=== PATIENT | female | born 1950 | race Caucasian/White ===

== ENCOUNTER 2017-03-24 18:52 | Observation (INO) | payer MEDICARE ==
[~2017-03-24] VITALS: Ht 165.1 cm; Wt 68.9 kg
[~2017-03-24 18:52] MED LIST: AMMONIA INHALATION 0.33 ML AMP ONE; CALC-80 PO; CARB400T PO; ETD300C PO; GBPN100C PO; GLUC1CAP37 PO; HYDR1TAB75 PO; HYDR1TAB8 OP; LAMO100T69 PO; LAMO200T14; LAMO200T14 PO; LEVE100015 PO; LORA1TAB PO; MULT-305 PO
[2017-03-24 19:18] LABS: BILIRUBIN,URINE NEGATIVE (NEGATIVE); KETONES,URINE NEGATIVE (NEGATIVE); LEUKOCYTE ESTERASE ,URINE NEGATIVE (NEGATIVE); NITRITE,URINE NEGATIVE (NEGATIVE); PH,URINE 7 (5-9); PROTEIN,URINE NEGATIVE (NEGATIVE); UROBILINOGEN,URINE NORMAL (NORMAL)
[2017-03-24 19:20] LABS: BASOPHILS # (AUTO) 0.1 10^3/uL (0.0-0.1); BASOPHILS % (AUTO) 1 % (0-10); EOSINOPHILS % (AUTO) 0 % (0-10); LYMPHOCYTES # (AUTO) 1.4 X 10^3 (1.0-4.0); LYMPHOCYTES % (AUTO) 16 % (12-44); MEAN CORPUSCULAR HEMOGLOBIN 31 PG (25-34); MEAN CORPUSCULAR HGB CONC 34 G/DL (32-36); MEAN CORPUSCULAR VOLUME 93 FL (80-99); MEAN PLATELET VOLUME 9.4 FL (7.4-10.4); MONOCYTES # (AUTO) 0.8 X 10^3 (0.0-1.0); MONOCYTES % (AUTO) 9 % (0-12); NEUTROPHILS # (AUTO) 6.4 X 10^3 (1.8-7.8); NEUTROPHILS % (AUTO) 74 % (42-75); PLATELET COUNT 343 10^3/uL (130-400); RED BLOOD COUNT 4.24 10^6/uL (4.35-5.85); RED CELL DISTRIBUTION WIDTH 12.8 % (10.0-14.5); WHITE BLOOD COUNT 8.6 10^3/uL (4.3-11.0)
[2017-03-24 19:22] LABS: PROTHROMBIN TIME PATIENT 13.5 SEC (12.2-14.7)
[2017-03-24 19:31] LABS: WBC,URINE 0-2 /HPF
[2017-03-24 19:34] LABS: ALANINE AMINOTRANSFERASE 16 U/L (0-55); ALBUMIN 4.4 GM/DL (3.2-4.5); ALCOHOL < 10 MG/DL (<10); AMYLASE 57 U/L (25-125); ANION GAP 11 MMOL/L (5-14); ASPARTATE AMINO TRANSFERASE 24 U/L (5-34); BILIRUBIN,TOTAL 0.4 MG/DL (0.1-1.0); BLOOD UREA NITROGEN 11 MG/DL (7-18); BUN/CREATININE RATIO 12; CALCIUM 9.5 MG/DL (8.5-10.1); CARBON DIOXIDE 24 MMOL/L (21-32); CHLORIDE 102 MMOL/L (98-107); CREATINE KINASE 128 U/L (29-168); CREATININE SERUM 0.89 MG/DL (0.60-1.30); GFR ESTIMATED > 60; GLUCOSE 106 MG/DL (70-105); LIPASE 15 U/L (8-78); MAGNESIUM 2.3 MG/DL (1.8-2.4); POTASSIUM 4.2 MMOL/L (3.6-5.0); SODIUM 137 MMOL/L (135-145); TOTAL PROTEIN 7.9 GM/DL (6.4-8.2)
[2017-03-24 19:35] LABS: ACETAMINOPHEN < 10 UG/ML (10-30)
--- NOTE | 2017-03-24 19:37 | Diagnostic Imaging Report ---
EXAMINATION: CT brain without contrast dated 03/24/2017. TECHNIQUE: Multiple contiguous axial images were obtained through the brain without the use of intravenous contrast. INDICATION: Acute mental status change. COMPARISON: None. FINDINGS: No hemorrhage or infarct is seen. There is no mass, mass effect, or midline shift. There is no hydrocephalus. Diffuse chronic ischemic changes seen in a periventricular distribution. There is atrophy likely age appropriate. Osseous structures are intact. Paranasal sinuses and mastoid air cells demonstrate no evidence for acute disease. IMPRESSION: 1. Chronic changes as described above with no acute process seen; however, if there is persistent concern, MRI recommended. Dictated by: Dictated on workstation # [id number]
--- NOTE | 2017-03-24 19:40 | Diagnostic Imaging Report ---
INDICATION: Acute mental status change EXAMINATION: Chest 03/24/2017 COMPARISON: None FINDINGS: The heart is normal in size. There are increased perihilar opacities bilaterally consistent with pulmonary vascular congestion. Mediastinum is slightly prominent but likely due to portable technique. Findings of edema seen throughout both lungs with no effusions or pneumothorax. No infiltrates. IMPRESSION: 1. Suspected mild pulmonary edema 2. Prominence of the mediastinum likely due to portable technique and the ectatic aorta, however, if there is focal chest pain a two-view chest in the department would be recommended. Dictated by: Dictated on workstation # [id number]
[2017-03-24 19:54] LABS: TROPONIN I < 0.30 NG/ML (<0.30)
[2017-03-24] MEDS ORDERED: 1/2 NS IV SOLUTION 1,000 ML IV ONE (20:54)
[2017-03-24] MEDS ORDERED: LORazepam INJ 2 MG/ML (ATIVAN) VIAL IV PRN (21:30)
[2017-03-24] MEDS ORDERED: 1/2 NS IV SOLUTION 1,000 ML IV SCH (21:30)
[2017-03-25] VITALS: BP 142/87
[2017-03-25 04:00] VITALS: BP 139/89
--- NOTE | 2017-03-25 04:43 | ED General ---
General Chief Complaint: Altered Mental Status Stated Complaint: ALTERED MENTAL STATUS, HX OF SEIZURES,HX OF ANXIET Nursing Triage Note: BROUGHT IN BY [facility] FOR ALTERED MENTAL STATUS Nursing Sepsis Screen: No Definite Risk Source of Information: EMS, Old Records (ALL PMH IS FROM OLD RECORDS AND ), Spouse History of Present Illness Time Seen by Provider: 18:52 Initial Comments PT ARRIVES VIA EMS FROM HOME PT WITH ALTERED MENTAL STATUS ARRIVES LATER AND STATES-- STATES SHE WAS FINE THIS AM, ATE LUNCH AROUND 1300 AND WAS FINE, SHE LAID DOWN AROUND 1400 AND LEFT TO RUN ERRANDS, HE GOT BACK AROUND 1530 AND PT WAS AWAKE AND APPEARED TO HAVE BEEN WORKING AROUND THE HOUSE WHILE HE WAS GONE--VACUUMING, CLEANING. HE STATES SHE LAID BACK DOWN AROUND 1545, AND HE ALSO LAID DOWN AND TOOK A NAP, WHEN HE WOKE UP AROUND 1800, PT WAS IN THIS CONDITION--COULDN'T GET HER TO RESPOND. PT HAS HISTORY OF SEIZURES, BUT NO WITNESSED SEIZURES TODAY. NO INCONTINENCE ALL MEDICATIONS ARE ACCOUNTED FOR AND PT HAS TAKEN HER MORNING AND NOON MEDICATIONS TODAY--HAS PRN XANAX, WHICH SHE HAS NOT TAKEN TODAY. REPORTS NO RECENT ILLNESS AND NO RECENT MEDICATION CHANGES EMS REPORTS THAT PT WILL MOVE ARM AWAY FROM FACE WHEN IT IS RAISED AND DROPPED, PT BLINKS AND SQUEEZES EYES SHUT TIGHTLY TO STERNAL RUB ACCUCHECK 112 BY EMS PCP: DR. CHAN Allergies and Home Medications Allergies Coded Allergies: pregabalin (Unverified Allergy, Intermediate, RASH, 06/12/11) Penicillins (Unverified Allergy, Mild, 09/07/09) Home Medications Calcium Carbonate/Vitamin D3 1 Each Tablet, 1 TAB PO DAILY, (Reported) Etodolac 300 Mg Cap, 300 MG PO BID, (Reported) Gabapentin 100 Mg Cap, 100 MG PO DAILY, (Reported) Glucosa Lawrence 2KCL/Chondroitin Lawrence 1 Each Capsule, 1 TAB PO BID, (Reported) Lamotrigine 200 Mg Tablet, 200 MG PO 5XD, (Reported) Lamotrigine 100 Mg Tablet, 1 EACH PO SIX TIMES A DAY, (Reported) Lorazepam 1 Mg Tab, 1 MG PO DAILY PRN, (Reported) Multivits W-Ca,Fe,Other Min 1 Each Tablet, 1 TAB PO DAILY, (Reported) Constitutional: see HPI, other (UNABLE TO OBTAIN ANY INFORMATION FROM PT) Past Edddyqn-Hocswh-Erubth Hx Patient Social History Alcohol Use: Denies Use Recreational Drug Use: No Smoking Status: Never a Smoker Recent Foreign Travel: No Contact w/Someone Who Travel: No Recent Infectious Disease Expo: No Recent Hopitalizations: No Physical Abuse Screen: No Sexual Abuse: No Immunizations Up To Date Date of Pneumonia Vaccine: May 28, 2016 Date of Influenza Vaccine: May 10, 2011 Seasonal Allergies Seasonal Allergies: No Surgeries HX Surgeries: Yes (MULTIPLE LIPOMA REMOVALS FROM BUTTOCKS; HYST/BSO 1999; RIGHT TOTAL HIP REPLACEMENT 06/2000; LEFT HIP REVISION 09/2000; VAGAL NERVE STIMULATOR 02/2003; RIGHT TOTAL HIP REPLACEMENT 02/2008; LEFT WRIST FX /ORIF 2010) Surgeries: Hysterectomy, Joint Replacement, Neurological, Oophorectomy, Orthopedic Respiratory Hx Respiratory Disorders: No Cardiovascular Hx Cardiac Disorders: No Neurological Hx Neurological Disorders: Yes (TBI/CONCUSSION AGE 7) Neurological Disorders: Concussion, Seizure Disorder, Traumatic Brain Injury Reproductive System : No Hx Reproductive Disorders: No Sexually Transmitted Disease: No 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 Genitourinary Hx Genitourinary Disorders: No Gastrointestinal Hx Gastrointestinal Disorders: No Musculoskeletal Hx Musculoskeletal Disorders: Yes (SEVERE ARTHRITIS) Musculoskeletal Disorders: Arthritis, Fractures Endocrine Hx Endocrine Disorders: No HEENT HX ENT Disorders: No Cancer Hx Cancer: No Psychosocial Hx Psychiatric Problems: Yes Behavioral Health Disorders: Anxiety, Depression Integumentary HX Skin/Integumentary Disorder: No Blood Transfusions Hx Blood Disorders: No Family Medical History Family Medial History: Not obtainable due to adoption Physical Exam Vital Signs Vital Sign - Last 12Hours 03/24/17 18:58 Temp 98.6 Pulse 74 Resp 16 B/P (MAP) 162/98 Pulse Ox 98 O2 Delivery Room Air Capillary Refill : Less Than 3 Seconds General Appearance: No Apparent Distress, WD/WN, Other (PT KEEPS EYES CLOSED AT ALL TIMES, BUT SQUEEZES THEM SHUT VERY TIGHTLY ON ATTEMPTS TO EXAMINE/ FORCIBLY OPEN EYES. AMMONIA AMPULE PLACED UNDER NOSE --PT MAKING FACES, SQUEEZING EYES VERY TIGHTLY SHUT, HOLDING HER BREATH, SWALLOWING REPEATEDLY. ) HEENT: PERRL/EOMI (BUT LIMITED EXAM DUE TO PT FORCIBLY SQUEEZING HER EYES TIGHTLY SHUT -- NO GROSS ABNORMALITY. ), TMs Normal, Normal ENT Inspection, Pharynx Normal Neck: Full Range of Motion, Normal Inspection, Non Tender, Supple, Other (PT VOLUNTARILY ASSISTS WITH HEAD MOVEMENTS ON EXAMINING HEAD/EENT/NECK) Respiratory: Chest Non Tender, Normal Breath Sounds, No Accessory Muscle Use, No Respiratory Distress Cardiovascular: Regular Rate, Rhythm, No Edema, No JVD, No Murmur, Normal Peripheral Pulses Gastrointestinal: Normal Bowel Sounds, No Organomegaly, No Pulsatile Mass, Non Tender, Soft Back: Normal Inspection, No CVA Tenderness, No Vertebral Tenderness Extremity: Normal Capillary Refill, Normal Inspection, Normal Range of Motion, Non Tender, No Calf Tenderness, No Pedal Edema Neurologic/Psychiatric: Other (KEEPS EYES SHUT AT ALL TIMES, DOES NOT FOLLOW COMMANDS; ON RAISING PT'S ARMS, SHE ACTIVELY HOLDS EACH ONE IN THE AIR FOR LONG PERIOD OF TIME, THEN WHEN HER ARM IS RAISED BY STAFF AND DROPPED NEAR HER FACE, PT WILL MOVE ARM AWAY FROM FACE. ON RAISING LEGS, THE SAME OCCURS--WHEN LEG IS RAISED SHE HOLDS EACH ONE VERY STIFFLY IN THE AIR FOR LONG PERIODS OF TIME, BUT WHEN RAISED AND DROPPED NEAR THE OTHER LEG, SHE WILL MOVE LEG TO AVOID DROPPING IT ON OTHER LEG. DTR'S INTACT AND +2/4 IN ALL EXTREMITIES. PT ALSO ASSISTS WITH ALL ARM AND LEG MOVEMENTS ) Skin: Normal Color, Warm/Dry, No Rash Progress/Results/Core Measures Results/Orders Lab Results Laboratory Tests Test 03/24/17 18:57 03/24/17 19:03 03/24/17 19:10 03/24/17 19:14 Range/Units White Blood Count 8.6 4.3-11.0 10^3/uL Red Blood Count 4.24 L 4.35-5.85 10^6/uL Hemoglobin 13.2 11.5-16.0 G/DL Hematocrit 39 35-52 % Mean Corpuscular Volume 93 80-99 FL Mean Corpuscular Hemoglobin 31 25-34 PG Mean Corpuscular Hemoglobin Concent 34 32-36 G/DL Red Cell Distribution Width 12.8 10.0-14.5 % Platelet Count 343 130-400 10^3/uL Mean Platelet Volume 9.4 7.4-10.4 FL Neutrophils (%) (Auto) 74 42-75 % Lymphocytes (%) (Auto) 16 12-44 % Monocytes (%) (Auto) 9 0-12 % Eosinophils (%) (Auto) 0 0-10 % Basophils (%) (Auto) 1 0-10 % Neutrophils # (Auto) 6.4 1.8-7.8 X 10^3 Lymphocytes # (Auto) 1.4 1.0-4.0 X 10^3 Monocytes # (Auto) 0.8 0.0-1.0 X 10^3 Eosinophils # (Auto) 0.0 0.0-0.3 10^3/uL Basophils # (Auto) 0.1 0.0-0.1 10^3/uL Prothrombin Time 13.5 12.2-14.7 SEC INR Comment 1.0 0.8-1.4 Activated Partial Thromboplast Time 28 24-35 SEC Sodium Level 137 135-145 MMOL/L Potassium Level 4.2 3.6-5.0 MMOL/L Chloride Level 102 98-107 MMOL/L Carbon Dioxide Level 24 21-32 MMOL/L Anion Gap 11 5-14 MMOL/L Blood Urea Nitrogen 11 7-18 MG/DL Creatinine 0.89 0.60-1.30 MG/DL Estimat Glomerular Filtration Rate > 60 BUN/Creatinine Ratio 12 Glucose Level 106 H 70-105 MG/DL Calcium Level 9.5 8.5-10.1 MG/DL Magnesium Level 2.3 1.8-2.4 MG/DL Total Bilirubin 0.4 0.1-1.0 MG/DL Aspartate Amino Transf (AST/SGOT) 24 5-34 U/L Alanine Aminotransferase (ALT/SGPT) 16 0-55 U/L Alkaline Phosphatase 122 40-136 U/L Total Creatine Kinase 128 29-168 U/L Creatine Kinase MB 1.3 <6.6 NG/ML Troponin I < 0.30 <0.30 NG/ML Total Protein 7.9 6.4-8.2 GM/DL Albumin 4.4 3.2-4.5 GM/DL Amylase Level 57 25-125 U/L Lipase 15 8-78 U/L TSH [place] Testing 1.37 0.35-4.94 UIU/ML Acetaminophen Level < 10 L 10-30 UG/ML Serum Alcohol < 10 <10 MG/DL Urine Color YELLOW Urine Clarity CLEAR Urine pH 7 5-9 Urine Specific [place] 1.005 L 1.016-1.022 Urine Protein NEGATIVE NEGATIVE Urine Glucose (UA) NEGATIVE NEGATIVE Urine Ketones NEGATIVE NEGATIVE Urine Nitrite NEGATIVE NEGATIVE Urine Bilirubin NEGATIVE NEGATIVE Urine Urobilinogen NORMAL NORMAL MG/DL Urine Leukocyte Esterase NEGATIVE NEGATIVE Urine RBC (Auto) 1+ H NEGATIVE Urine RBC RARE /HPF Urine WBC 0-2 /HPF Urine Crystals NONE /LPF Urine Bacteria NEGATIVE /HPF Urine Casts NONE /LPF Urine Mucus NEGATIVE /LPF Urine Culture Indicated NO Urine Opiates Screen NEGATIVE NEGATIVE Urine Oxycodone Screen NEGATIVE NEGATIVE Urine Methadone Screen NEGATIVE NEGATIVE Urine Propoxyphene Screen NEGATIVE NEGATIVE Urine Barbiturates Screen NEGATIVE NEGATIVE Ur Tricyclic Antidepressants Screen NEGATIVE NEGATIVE Urine Phencyclidine Screen NEGATIVE NEGATIVE Urine Amphetamines Screen NEGATIVE NEGATIVE Urine Methamphetamines Screen NEGATIVE NEGATIVE Urine Benzodiazepines Screen NEGATIVE NEGATIVE Urine Cocaine Screen NEGATIVE NEGATIVE Urine Cannabinoids Screen NEGATIVE NEGATIVE Glucometer 83 70-110 MG/DL Test 03/24/17 19:20 Range/Units Lactic Acid Level 0.93 0.50-2.00 MMOL/L Ammonia 25 11-32 UMOL/L My Orders Orders - ROSAURA GARCIA DO Accucheck Stat ONCE (03/24/17 19:03) Saline Lock/Iv-Start (03/24/17 19:03) Ekg Tracing (03/24/17:03) Catheter(Urinary) Insert & Ass ,15 (03/24/17 19:03) Monitor-Rhythm Ecg Trace Only (03/24/17:03) Ct Head Wo (03/24/17:) Acetaminophen (03/24/17:) Alcohol (03/24/17:03) Amylase (03/24/17:03) Cbc With Automated Diff (03/24/17:03) Comprehensive Metabolic Panel (03/24/17:) Creatine Kinase (03/24/17:) Creatine Kinase Mb (03/24/17:03) Drug Screen Stat (Urine) (03/24/17:03) Lactic Acid Analyzer (03/24/17:03) Lipase (03/24/17:03) Magnesium (03/24/17:) Protime With Inr (03/24/17:) Partial Thromboplastin Time (03/24/17:03) Thyroid Analyzer (03/24/17 19:03) Troponin I (03/24/17 19:03) Ua Culture If Indicated (03/24/17 19:03) Chest 1 View, Ap/Pa Only (03/24/17 19:03) Ammonia (03/24/17 19:15) Vital Signs/I&O Vital Sign - Last 12Hours 03/24/17 03/24/17 03/24/17 03/24/17 18:58 20:41 20:55 21:00 Temp 98.6 98.6 Pulse 74 75 76 Resp 16 11 B/P (MAP) 162/98 Pulse Ox 98 97 96 O2 Delivery Room Air Room Air Room Air 03/25/17 03/25/17 03/25/17 03/25/17 00:00 00:00 01:00 04:00 Temp 100.2 Pulse 81 73 B/P (MAP) 142/87 Pulse Ox 96 94 96 O2 Delivery Room Air Room Air Room Air Blood Pressure Mean: 105 Point of Care Testing Finger Stick Blood Glucose: 83 Blood Glucose Action Taken: ERP NOTIFIED Progress Note : Progress Note NO DETERIORATION IN PT'S CONDITION DURING ER STAY ECG Initial ECG Impression Time: 18:57 Initial ECG Rate: 77 Initial ECG Rhythm: Normal Sinus Initial ECG Impression: Normal Initial ECG Comparisson: No Previous ECG Available Diagnostic Imaging Comments CT HEAD--NO ACUTE PROCESS, CHRONIC CHANGES CXR--NO ACUTE PROCESS PER RADIOLOGIST REPORTS @ 1952 Reviewed: Reviewed by Me Departure Communication Progress Notes 2004--SPOKE WITH DR. MOODY, ACCEPTS PT FOR ADMIT. Impression Impression: Primary Impression: Altered mental status Additional Impressions: Catatonia Hx of seizure disorder Hx of anxiety disorder Disposition: ADMITTED INPATIENT Condition: Improved Admissions Decision to Admit Reason: Admit from ER (General) Decision to Admit/Date: Mar 24, 2017 Time/Decision to Admit Time: 20:05 Departure-Patient Inst. Referrals: JUAN MANUEL ROUSE DO (PCP) Primary Care Physician ROSAURA GARCIA DO Mar 25, 2017 04:43
[2017-03-25 04:47] LABS: BASOPHILS # (AUTO) 0.1 10^3/uL (0.0-0.1); BASOPHILS % (AUTO) 1 % (0-10); EOSINOPHILS % (AUTO) 0 % (0-10); LYMPHOCYTES % (AUTO) 23 % (12-44); MEAN CORPUSCULAR HEMOGLOBIN 31 PG (25-34); MEAN CORPUSCULAR HGB CONC 34 G/DL (32-36); MEAN CORPUSCULAR VOLUME 93 FL (80-99); MEAN PLATELET VOLUME 9.2 FL (7.4-10.4); MONOCYTES # (AUTO) 1.1 X 10^3 (0.0-1.0); MONOCYTES % (AUTO) 12 % (0-12); NEUTROPHILS # (AUTO) 5.4 X 10^3 (1.8-7.8); NEUTROPHILS % (AUTO) 63 % (42-75); PLATELET COUNT 323 10^3/uL (130-400); RED BLOOD COUNT 4.23 10^6/uL (4.35-5.85); RED CELL DISTRIBUTION WIDTH 12.9 % (10.0-14.5); WHITE BLOOD COUNT 8.5 10^3/uL (4.3-11.0)
[2017-03-25 05:11] LABS: ALANINE AMINOTRANSFERASE 15 U/L (0-55); ALBUMIN 4.3 GM/DL (3.2-4.5); ANION GAP 12 MMOL/L (5-14); ASPARTATE AMINO TRANSFERASE 20 U/L (5-34); BILIRUBIN,TOTAL 0.4 MG/DL (0.1-1.0); BLOOD UREA NITROGEN 11 MG/DL (7-18); BUN/CREATININE RATIO 14; CALCIUM 9.6 MG/DL (8.5-10.1); CARBON DIOXIDE 23 MMOL/L (21-32); CHLORIDE 102 MMOL/L (98-107); CREATININE SERUM 0.81 MG/DL (0.60-1.30); GFR ESTIMATED > 60; GLUCOSE 105 MG/DL (70-105); POTASSIUM 3.8 MMOL/L (3.6-5.0); SODIUM 137 MMOL/L (135-145); TOTAL PROTEIN 7.4 GM/DL (6.4-8.2)
[2017-03-25 08:05] VITALS: BP 142/88
[2017-03-25] MEDS ORDERED: OMEP20CA12 PO (09:32)
[2017-03-25] MEDS ORDERED: LAMO100T PO (09:32)
[2017-03-25] MEDS ORDERED: LORA1TAB PO (09:32)
[2017-03-25] MEDS ORDERED: LORazepam 1 MG (ATIVAN) TAB PO PRN (11:30)
[2017-03-25 12:05] VITALS: BP 119/77
--- NOTE | 2017-03-25 12:33 | Short Stay Summary-Hospitalist ---
HPI History of Present Illness: HPI/Chief Complaint CC: Unresponsive HPI: This is a 67 [address] Tucker with a hx of seizure disorder that presented as unresponsive after no change in status yesterday. Labs imaging are normal and the pt's family feels like this is a psych episode. 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 Pt will not squeeze RNs hand, but can move her blankets herself. Pt knows the month, year, her name, etc but states she is here to go to sleep. Pt requested that the RN tell her family 'hi' last night. Pt is on Lamictal 6 times daily Pt labs are okay SW Review: Pt has [employer] so she cannot have a psych eval with Sameer Enciso, will refer to outpt at PCP discretion Patient Interview: The following interview was done with pt's : Labs and tests discussed and were normal Pt will most likely not need to stay It is possible that her medication and seizure disorder is a factor. Pt's agrees and states that she has had seizure disorder for over 40 years. It first started when pt fell as a [age] year old. Pt's seems like he's got all the explanations. Neurologist was confirmed as Dr. Winkler in [place], but now they just see Dr. Tucker as PCP. Pt's son is a psychologist and it is possible that pt may have depression Family was wondering if pt needs a sleep study. Dr. Tucker will see note and hopefully order sleep study Pt needs to eat breakfast Pt's daughter states that she would like her mother to have a psych eval because she seems to be making plans to 'check out'. Pt had seizure after interview but she has one a week Scribed by Christa Christine under the direct supervision of Dr. Knapp. Source: family, RN/MD Exam Limitations: clinical condition (pt refuses to open her eyes and converse) Date Seen 03/25/17 Time Seen by Provider: 09:30 (09:30) Attending Physician Danny No MD PCP Thad Tucker DO Referring Physician Date of Admission Mar 24, 2017 at 20:05 Home Medications & Allergies Home Medications Reviewed patient Home Medication Reconciliation Form Allergies Allergies Coded Allergies gabapentin (Verified Allergy, Intermediate, RASH, 03/25/17) pregabalin (Unverified Allergy, Intermediate, RASH, 06/12/11) Penicillins (Unverified Allergy, Mild, 09/07/09) valproic acid (Verified Adverse Reaction, Intermediate, NAUSEA, 03/25/17) Past Zzbtrhu-Pfltcv-Fikwhm Hx Patient Social History Marrital Status: Employed/Student: unemployed Alcohol Use: Denies Use Recreational Drug Use: No Smoking Status: Never a Smoker Physical Abuse Screen: No Sexual Abuse: No Recent Foreign Travel: No Contact w/other who traveled: No Recent Hopitalizations: No Recent Infectious Disease Expo: No Immunizations Up To Date Date of Pneumonia Vaccine: May 28, 2016 Date of Influenza Vaccine: May 10, 2011 Seasonal Allergies Seasonal Allergies: No Surgeries HX Surgeries: Yes (MULTIPLE LIPOMA REMOVALS FROM BUTTOCKS; HYST/BSO 1999; RIGHT TOTAL HIP REPLACEMENT 06/2000; LEFT HIP REVISION 09/2000; VAGAL NERVE STIMULATOR 02/2003; RIGHT TOTAL HIP REPLACEMENT 02/2008; LEFT WRIST FX /ORIF 2010) Surgeries: Hysterectomy, Joint Replacement, Neurological, Oophorectomy, Orthopedic Respiratory Hx Respiratory Disorders: No Cardiovascular Hx Cardiovascular Disorders: No Neurological Hx Neurological Disorders: Yes (TBI/CONCUSSION AGE 7) Neurological Disorders: Concussion, Seizure Disorder, Traumatic Brain Injury ( 7yo fell and hit head on concrete) Reproductive System : No Hx Reproductive Disorders: No Sexually Transmitted Disease: No Genitourinary Hx Genitourinary Disorders: No Gastrointestinal Hx Gastrointestinal Disorders: No Musculoskeletal Hx Musculoskeletal Disorders: Yes (SEVERE ARTHRITIS) Musculoskeletal Disorders: Arthritis, Fractures Endocrine Hx Endocrine Disorders: No HEENT HX ENT Disorders: No Cancer Hx Cancer: No Psychosocial Hx Psychiatric Problems: Yes Behavioral Health Disorders: Anxiety, Depression Integumentary HX Skin/Integumentary Disorder: No Blood Transfusions Hx Blood Disorders: No Family Medical History Family Hx: Not obtainable due to adoption Review of Systems ROS-Unable to Obtain: unable to ascertain due to refusal to open her eyes but follows commands Constitutional: see HPI Physical Exam Physical Exam Vital Signs Vital Sign - Last 12Hours 03/24/17 18:58 Temp 98.6 Pulse 74 Resp 16 B/P (MAP) 162/98 Pulse Ox 98 O2 Delivery Room Air Capillary Refill : Less Than 3 Seconds General Appearance: No Apparent Distress, WD/WN, Chronically ill Eyes: Bilateral Eye Normal Inspection, Bilateral Eye PERRL HEENT: Normal ENT Inspection, Pharynx Normal, Other (refuses to open eyes willingly) Neck: Full Range of Motion, Normal Inspection, Non Tender, Supple, Carotid Bruit Respiratory: Chest Non Tender, Lungs Clear, Normal Breath Sounds, No Accessory Muscle Use, No Respiratory Distress Cardiovascular: Regular Rate, Rhythm, No Edema, No Gallop, No JVD, No Murmur, Normal Peripheral Pulses Gastrointestinal: Normal Bowel Sounds, No Organomegaly, No Pulsatile Mass, Non Tender, Soft Back: Normal Inspection, No CVA Tenderness, No Vertebral Tenderness Extremity: Normal Capillary Refill, Normal Inspection, Normal Range of Motion, Non Tender, No Calf Tenderness, No Pedal Edema Neurologic/Psychiatric: Alert, Depressed Affect Skin: Normal Color, Warm/Dry Lymphatic: No Adenopathy Results Results/Procedures Lab Laboratory Tests 03/24/17 18:57 03/24/17 19:03 03/25/17 04:20 Short Stay Diagnosis Discharge Diagnosis-Short Stay Admission Diagnosis Assessment: Unresponsive episode likely post-ictal state Chronic seizure d/o previously saw Dr Vargas Neurologist but Dr Tucker manages seizures now Possible depression, thinks that is a component and daughter told me outside room that it definitely is a psych issue that caused this acute issue Final Discharge Diagnosis Assessment: Unresponsive episode likely post-ictal state Chronic seizure d/o previously saw Dr Vargas Neurologist but Dr Tucker manages seizures now Possible depression, thinks that is a component and daughter told me outside room that it definitely is a psych issue that caused this acute issue Conclusion Plan Plan: DC catheter Ambulate Reconcile home meds PT - Allyssa to encourage ambulation Needs sleep study as outpt and to evaluate seizure meds since it appears this is related to seizures and likely depression but will allow PCP to manage this Clinical Quality Measures DVT/VTE Risk/Contraindication: Risk Factor Score Per Nursin RFS Level Per Nursing on Admit: 2=Moderate LUCIO KNAPP DO Mar 25, 2017 12:33
--- NOTE | 2017-03-25 13:51 | Physical Therapy Evaluation ---
PT Evaluation-General Medical Diagnosis Admission Date Mar 24, 2017 at 20:05 Medical Diagnosis: weakness Onset Date: Mar 24, 2017 Therapy Diagnosis Therapy Diagnosis: impaired mobility Height/Weight Height (Feet): 5 Height (Inches): 5.00 Weight (Pounds): 151 Weight (Ounces): 12.8 Precautions Precautions/Isolations: Seizure, Fall Prevention, Standard Precautions Referral Physician: Jaycee West DO Reason for Referral: Evaluation/Treatment Medical History Pertinent Medical History: Arthritis Additional Medical History TBI/concussion as a child, hx seizure disorder, anxiety, depression, surg ( lipoma removals from buttocks, hysterectomy, right ZOYA 1999, vagal nerve stimulator, right ZOYA 2007, left wrist ORIF 2010) Social History Patient will not communicate, patient history or home situation not obtainable Prior/Core FIM Prior Level of Function Functional Gila Measure 0=Not Assessed/NA 4=Minimal Assistance 1=Total Assistance 5=Supervision or Setup 2=Maximal Assistance 6=Modified Gila 3=Moderate Assistance 7=Complete Gila unknown PT Evaluation-Current Subjective Patient in bed pre tx, she appears to be sleeping but nursing states she keeps her eyes closed and will not talk to staff. Upon introduction, patient is non- responsive. She does not seem to be in any pain. A mild sternal rub does not rouse the patient. Objective Patient Orientation: Unable to Assess ROM/Strength ROM Lower Extremities WNL, patient resists PROM, but it appears to be normal Strenght Lower Extremities NT patient will not follow commands Transfers Functional Gila Measure 0=Not Assessed/NA 4=Minimal Assistance 1=Total Assistance 5=Supervision or Setup 2=Maximal Assistance 6=Modified Gila 3=Moderate Assistance 7=Complete Gila Transfers (B, C, W/C) (FIM): 1 Scootin Rollin Supine to/from Sit: 1 Patient was sat at the edge of the bed with dependence of 2 people, in the process of sitting patient stated that we did not need to do that, but she still would not open her eyes. After sitting for a couple of minutes as asking her questions about pain and how she was getting around before coming to the hospital, patient suddenly goes limp. Still will not talk or open eyes. She was layed back down. When asked to cross her arms across her chest so we could scoot her up on bed, she complies perfectly and she was scooted up in bed. Bed alarm on post tx, she has nurse call, phone, tray, family in room. Assessment/Needs Patient refuses to participate. She is discharging from this facility today. Rehab Potential: Poor PT Plan Treatment/Plan Treatment Plan: Discontinue PT Treatment Plan: Other Treatment Duration: Mar 25, 2017 Frequency: Estimated Hrs Per Day: .25 hour per day (none) Patient and/or Family Agrees t: Yes Discharge Recommendations Therapy D/C Recommendations: Home w/ Family Support Time/GCodes Time In: 1330 Time Out: 1345 Total Billed Treatment Time: 15 Total Billed Treatment 1 visit EVL 15' G Codes Necessary: Yes PT/OT Therapy GCodes Therapy Functional Limitation: Physical Therapy Test(s)/Tool used to determine: Level of Assistance Scale Functional Limitation-Current Charge Code: MOBCUR Modifier: CM Functional Limitation-Goal Charge Code: MOBGOAL Modifier: CM Functional Limitation-D/C Charge Codes: MOBDC Modifier: CM GWENDOLYN POLO PT Mar 25, 2017 13:51
[2017-03-25] MEDS ORDERED: CALCIUM CARB + VIT D 600 MG (CALCARB + D) TAB PO SCH (15:00)
[2017-03-25 16:00] VITALS: BP 124/76
[2017-03-25] MEDS ORDERED: [UNRECOGNIZED DRUG - OTHER] PO SCH (19:00)
[2017-03-25] MEDS ORDERED: MULTIVIT W/MINERALS TAB (THERAGRAN M) PO SCH (21:00)
[2017-03-25] MEDS ORDERED: PANTOPRAZOLE 20 MG TABLET (PROTONIX) PO SCH (21:00)
== END 2017-03-25 18:00 | disposition home or self-care (01) ==
LOC: EDUNIT# 18:52 → ER 18:52 → ICU 20:05 → UNDOADMOB 20:05 → ICU 20:47
PROVIDERS: ADMIT Internal Medicine; ATTEND Internal Medicine
DX: R41.82 Altered mental status, unspecified (principal); G40.909 Epilepsy, unspecified, not intractable, without status epilepticus; F41.9 Anxiety disorder, unspecified; Z79.899 Other long term (current) drug therapy; Z96.641 Presence of right artificial hip joint
CPT/HCPCS: 36415; 70450; 71010; 80053; 80306; 80320; 80329; 81000; 82140; 82150; 82550; 82553; 82962; 83605; 83690; 83735; 84443; 84484; 85025; 85610; 85730; 93041

== ENCOUNTER → 2017-05-14 | Outpatient (CLI) | payer MEDICARE ==
[~2017-05-14] MED LIST changes: -AMMONIA INHALATION 0.33 ML AMP ONE; +LAMO100T PO; +OMEP20CA12 PO
--- NOTE | 2017-05-14 13:59 | Diagnostic Imaging Report ---
Three views of the left ankle and three views of the right ankle are obtained. INDICATION: Trauma. Fall. FINDINGS: The left ankle demonstrate no fracture, dislocation or radiopaque from body. Ankle mortise is normal in configuration. The right ankle demonstrate no fracture, dislocation or radiopaque foreign body. IMPRESSION: Unremarkable exam. Dictated by: Dictated on workstation # [id number]
== END ==
LOC: RAD 12:51
PROVIDERS: ATTEND Internal Medicine
DX: S99.911A Unspecified injury of right ankle, initial encounter (principal); S99.912A Unspecified injury of left ankle, initial encounter; W19.XXXA Unspecified fall, initial encounter; Y99.8 Other external cause status

== ENCOUNTER → 2017-07-06 | Outpatient (CLI) | payer MEDICARE ==
--- NOTE | 2017-07-06 21:46 | Diagnostic Imaging Report ---
INDICATION: Left buttock pain AP view of the pelvis was obtained and compared with the prior exam dated 05/29/2015. There are postop changes from bilateral hip arthroplasties. There is no evidence of loosening. There is no fracture or dislocation. IMPRESSION: Postop changes in both hips. No acute abnormality seen. No interval change since 05/29/2015. Dictated by: Dictated on workstation # [id number]
== END ==
LOC: RAD 14:55
PROVIDERS: ATTEND Nurse Practitioner Family
DX: M79.1 Myalgia (principal); Z98.890 Other specified postprocedural states
CPT/HCPCS: 72170

== ENCOUNTER 2017-08-04 14:05 | Emergency (ER) | payer MEDICARE ==
[~2017-08-04] VITALS: Ht 165.1 cm; Wt 63.5 kg
--- NOTE | 2017-08-04 14:42 | ED Back Pain ---
General Chief Complaint: Back Problems Stated Complaint: FALL,HAS EPILEPSY Nursing Triage Note: PT PRESENTS TO ER WITH COMPLAINT OF BACK AND NECK PAIN. STATES THAT SHE HAS EPILEPSY AND HAD A SEIZURE TWO DAYS AGO THAT CAUSED HER TO FALL. Nursing Sepsis Screen: No Definite Risk Source of Information: Patient Exam Limitations: No Limitations History of Present Illness Time Seen by Provider: 14:42 Allergies and Home Medications Allergies Coded Allergies: gabapentin (Verified Allergy, Intermediate, RASH, 03/25/17) pregabalin (Unverified Allergy, Intermediate, RASH, 06/12/11) Penicillins (Unverified Allergy, Mild, 09/07/09) valproic acid (Verified Adverse Reaction, Intermediate, NAUSEA, 03/25/17) Home Medications Calcium Carbonate/Vitamin D3 1 Each Tablet, 1 TAB PO 1500, (Reported) Glucosa Lawrence 2KCL/Chondroitin Lawrence 1 Each Capsule, 1 TAB PO 1900, (Reported) Lamotrigine 100 Mg Tablet, 100 MG PO UD, (Reported) TAKES @ 0400, 0800, 1100, 1500, 1900, & 2300 Lorazepam 1 Mg Tablet, 1 MG PO TID PRN for ANXIETY, (Reported) Multivits W-Ca,Fe,Other Min 1 Each Tablet, 1 TAB PO HS, (Reported) Omeprazole 20 Mg Capsule.dr, 20 MG PO HS, (Reported) Past Izhxcnx-Hczlag-Mmdchg Hx Patient Social History Alcohol Use: Denies Use Recreational Drug Use: No Smoking Status: Never a Smoker Recent Foreign Travel: No Contact w/Someone Who Travel: No Recent Infectious Disease Expo: No Recent Hopitalizations: No Physical Abuse: No Sexual Abuse: No Immunizations Up To Date Date of Pneumonia Vaccine: May 28, 2016 Date of Influenza Vaccine: May 10, 2011 Seasonal Allergies Seasonal Allergies: No Surgeries History of Surgeries: Yes Surgeries: Hysterectomy, Joint Replacement, Neurological, Oophorectomy, Orthopedic Respiratory History of Respiratory Disorde: No Cardiovascular History of Cardiac Disorders: No Neurological History of Neurological Disord: Yes (TBI/CONCUSSION AGE 7) Neurological Disorders: Concussion, Seizure Disorder, Traumatic Brain Injury Reproductive System Hx Reproductive Disorders: No Sexually Transmitted Disease: No CLINICAL SUPPORT TECH History: Hysterectomy, Menopausal Genitourinary History of Genitourinary Disor: No Gastrointestinal History of Gastrointestinal Di: No Musculoskeletal History of Musculoskeletal Dis: Yes (SEVERE ARTHRITIS) Musculoskeletal Disorders: Arthritis, Fractures Endocrine History of Endocrine Disorders: No HEENT History of HEENT Disorders: No Cancer History of Cancer: No Psychosocial History of Psychiatric Problem: Yes Behavioral Health Disorders: Anxiety, Depression Suicide Risk Score: 0 Integumentary History of Skin or Integumenta: No Blood Transfusions History of Blood Disorders: No Family Medical History Family Medial History: Not obtainable due to adoption Physical Exam Vital Signs Vital Sign - Last 12Hours 08/04/17 14:25 Temp 98.3 Pulse 83 Resp 20 B/P (MAP) 152/88 (109) Pulse Ox 98 O2 Delivery Room Air Capillary Refill : Less Than 3 Seconds Progress/Results/Core Measures Results/Orders My Orders Orders - JORGE A RODRIGUEZ Ct Head/Cervical Spine Wo (08/04/17 14:57) Ct Thoracic/Lumbar Spine Wo (08/04/17 14:57) Vital Signs/I&O Vital Sign - Last 12Hours 08/04/17 14:25 Temp 98.3 Pulse 83 Resp 20 B/P (MAP) 152/88 (109) Pulse Ox 98 O2 Delivery Room Air Blood Pressure Mean: 109 Departure Impression Impression: Primary Impression: Minor head injury Additional Impressions: Neck muscle strain Back strain History of epilepsy Disposition: 01 HOME, SELF-CARE Condition: Improved Departure-Patient Inst. Decision time for Depature: 16:09 Referrals: JUAN MANUEL ROUSE DO (PCP/Family) Primary Care Physician Patient Instructions: Cervical Muscle Strain (DC), Minor Head Injury (DC), Muscle Strain (DC) Add. Discharge Instructions: All discharge instructions reviewed with patient and/or family. Voiced understanding. Medications as instructed. Tylenol extra strength [id number]-[id number]-[id number] as directed for pain. Heating pads or packs as needed for pain. No strenuous activity or activities that may result and head injury for 7 days after headache resolves. Follow-up with your family practitioner for recheck as an outpatient. Return to the emergency department for worsened symptoms or any other concerns. Scripts Hydrocodone/Acetaminophen (Hydrocodon -Acetaminophen 5-325) 1 Each Tablet 1 EACH PO Q6H Y for PAIN, #10 TAB 0 Refills Prov: JORGE A RODRIGUEZ 08/04/17 Prednisone (Prednisone) 20 Mg Tab 20 MG PO BID, #8 TAB 0 Refills Prov: JORGE A RODRIGUEZ 08/04/17 JORGE A RODRIGUEZ Aug 04, 2017 14:42
--- NOTE | 2017-08-04 15:44 | Diagnostic Imaging Report ---
PROCEDURE: CT head and CT cervical spine without contrast. TECHNIQUE: Multiple contiguous axial images were obtained through the brain and cervical spine without the use of intravenous contrast. Sagittal and coronal reformations through the cervical spine were then performed. INDICATION: Fall. FINDINGS: CT head: There is no intracranial hemorrhage, edema, or mass effect. The brain parenchyma and shin-white matter differentiation is preserved. There is no hydrocephalus. No extra-axial fluid collection is seen. The calvarium, the paranasal sinuses, and orbits visualized portions appear grossly unremarkable. CT cervical spine: There is reversal of the lordotic curvature. The vertebral body heights are preserved. There is significant disc height loss at the C4-C5, C5-C6, and C6-C7 levels. There is minimal anterior translation of C2 over C3 and C3 over C4. The alignment at the facet joints is satisfactory. There is fusion of the C2-C3 facet joint on the left side. There are posterior osteophytes seen at the C4-C5, C5-C6 and C6-C7 levels and prominent uncovertebral arthropathy and osteophyte formation also at these three levels. Vlbpcomc-by-sdqdqe foraminal stenosis bilaterally at these levels is seen. The coronal images demonstrate satisfactory alignment of the lateral masses of C1 and C2 and atlanto-occipital joints. There is no widening of the predental space. No fracture seen. IMPRESSION: CT head: No intracranial hemorrhage. CT cervical spine: Advanced degenerative changes. Alignment abnormalities at C2-C3 and C3-C4 are probably also degenerative in etiology. No fracture seen. Dictated by: Dictated on workstation # [id number]
--- NOTE | 2017-08-04 15:57 | Diagnostic Imaging Report ---
TECHNIQUE: CT scan of the thoracic and lumbar spine performed without intravenous contrast with coronal, sagittal, and axial reconstructions performed. INDICATION: Fall. FINDINGS: CT THORACIC SPINE: There is straightening of the curvature of the thoracic spine particularly along the lower aspect. There is an old compression fracture of T12 vertebral body with no significant retropulsion. The alignment of the posterior spinal line is satisfactory. Alignment at the facet joints is satisfactory. There is moderate foraminal narrowing on the right side at T2/3 and T3/4 levels. The other foramina bilaterally are patent. No acute fracture is seen. CT LUMBAR SPINE: There is grade I retrolisthesis of L1 over L2 and L2 over L3 and of L3 over L4 levels. There is scoliosis convex to the left side with center of the convexity at L3 level. There are advanced disc degenerative changes in the lumbar spine levels with significant endplate erosions and cyst formation in the subchondral bone with vacuum phenomenon seen along these discs. There is no pars defect or fracture seen. The vertebral body heights are preserved. There is bilateral significant foraminal stenosis, worst on the right side at L2/3, L3/4, and L4/5 levels and worst on the left side at L4/5 and L5/S1. Prominent lower and mid lumbar spine facet arthropathy is seen. IMPRESSION: CT THORACIC SPINE: Old T12 compression fracture. No acute fracture. CT LUMBAR SPINE: Left convexity scoliosis centered around L3 level. Severe degenerative changes. No fracture seen. Dictated by: Dictated on workstation # [id number]
[2017-08-04] MEDS ORDERED: ACHD5005 PO (16:11)
[2017-08-04] MEDS ORDERED: PRD20T PO (16:11)
[2017-08-04 16:34] VITALS: BP 152/88
== END 2017-08-04 16:34 | disposition home or self-care (01) ==
LOC: EDUNIT# 14:05 → ER 14:07
DX: S09.90XA Unspecified injury of head, initial encounter (principal); S39.012A Strain of muscle, fascia and tendon of lower back, initial encounter; S16.1XXA Strain of muscle, fascia and tendon at neck level, initial encounter; G40.909 Epilepsy, unspecified, not intractable, without status epilepticus; F41.9 Anxiety disorder, unspecified; F32.9 Major depressive disorder, single episode, unspecified; Z90.710 Acquired absence of both cervix and uterus; W18.30XA Fall on same level, unspecified, initial encounter
CPT/HCPCS: 70450; 72125; 72128; 72131; 99281

== ENCOUNTER → 2018-03-11 | Outpatient (CLI) | payer MEDICARE ==
[~2018-03-11] MED LIST changes: +ACHD5005 PO; +PRD20T PO
--- NOTE | 2018-03-11 13:57 | Diagnostic Imaging Report ---
PROCEDURE: US carotid duplex, bilateral. TECHNIQUE: Multiple real-time grayscale images were obtained over the carotid arteries in various projections, bilaterally. Additional duplex Doppler and color Doppler images were also obtained. INDICATION: Dizziness. FINDINGS: Mild soft plaque in the proximal internal carotid arteries bilaterally is noted. Velocities are normal bilaterally. No velocity elevation or stenosis is seen. Both vertebral arteries show antegrade flow. Parameters based on the consensus panel Adams-Scale and Doppler ultrasound criteria published June 2003, Radiology, Volume 229. DOPPLER (peak systolic velocity M/S Right Left CCA .72 .64 ICA Proximal .4 .41 ICA Mid .67 .77 ICA Distal .82 .85 RATIO 1.1 1.3 ECA .83 .72 VERT .61 .73 IMPRESSION: Mild bilateral carotid plaque. There is no evidence of a hemodynamically significant stenosis. Dictated by: Dictated on workstation # [id number]
== END ==
LOC: RAD 12:41
PROVIDERS: ATTEND Internal Medicine
DX: I65.23 Occlusion and stenosis of bilateral carotid arteries (principal)
CPT/HCPCS: 93880

== ENCOUNTER 2018-10-01 05:31 | Outpatient (CLI) | payer MEDICARE ==
[~2018-10-01] VITALS: Ht 165.1 cm; Wt 63.9 kg
[2018-10-01] MEDS ORDERED: GLUC1CAP35 PO (10:31)
[2018-10-01] MEDS ORDERED: MULT-633 PO (10:31)
[2018-10-01] MEDS ORDERED: DOCU100T7 PO (10:31)
[2018-10-01] MEDS ORDERED: CALC-140 PO (10:31)
== END 2018-10-01 10:51 ==
LOC: PREOP 05:31
PROVIDERS: ATTEND Surgery
DX: Z01.818 Encounter for other preprocedural examination (principal)

== ENCOUNTER 2018-10-05 09:15 | Day surgery (SDC) | payer MEDICARE ==
[~2018-10-05] VITALS: Ht 165.1 cm; Wt 63.9 kg
[~2018-10-05 09:15] MED LIST changes: +CALC-140 PO; +DOCU100T7 PO; +GLUC1CAP35 PO; +MULT-633 PO
[2018-10-05] MEDS ORDERED: CLINDAMYCIN 600 MG/50 ML IVPB 50 ML IV ONE ×2 (09:24→10:15)
--- NOTE | 2018-10-05 09:28 | Progress Note-Pre Operative ---
Pre-Operative Progress Note H&P Reviewed The H&P was reviewed, patient examined and no changes noted. Date Seen by Provider: Oct 05, 2018 Time Seen by Provider: 09:25 Date H&P Reviewed: Oct 05, 2018 Time H&P Reviewed: 08:50 Pre-Operative Diagnosis: Symptomatic lesion left buttock WILLIAN WALSH APRN Oct 05, 2018 09:28
[2018-10-05] MEDS ORDERED: morphine INJ 10 MG/ML 1ML (SYR OR VIAL) IVP PRN (09:30)
[2018-10-05] MEDS ORDERED: HYDR-3820 PO (09:30)
[2018-10-05] MEDS ORDERED: ONDANSETRON 4 MG/2 ML (SDV) Z0FRAN IVP PRN ×2 (09:30→10:45)
[2018-10-05] MEDS ORDERED: oxyCODONE/APAP 5/325MG (PERCOCET 5) TABLET PO PRN (09:30)
[2018-10-05] MEDS ORDERED: ACETAMINOPHEN 325 MG TABLET PO PRN (09:30)
--- NOTE | 2018-10-05 09:31 | Discharge Inst-Surgical ---
D/C Lap Instructions-KIDO New, Converted, or Re-Newed RX: RX on Chart Follow Up Appt in 2 weeks Activity as tolerated No driving for 24 hours No driving while on pain medications Incentive Spirometry use every 2 hours while awake Regular Diet Symptoms to Report: Fever over 101 degree F, Nausea/Vomiting Infection Signs and Symptoms to report: Increased redness, Foul odor of wound, Increased drainage Bathing instructions: May shower Operative Area Clean/Dry; Keep incision clean/dry If any problems/questions: Contact your physician or go to Emergency Room WILLIAN WALSH APRN Oct 05, 2018 09:31
[2018-10-05 09:40] VITALS: BP 117/84
[2018-10-05] MEDS ORDERED: MIDAZOLAM 2 MG/2 ML (VERSED) VIAL ONE ×2 (09:53→10:09)
[2018-10-05] MEDS ORDERED: fentaNYL INJECTION 100 MCG/2 ML AMP ONE (09:53)
[2018-10-05] MEDS ORDERED: LIDOCAINE PF 2% 5 ML (XYLOCAINE) VIAL ONE (09:53)
[2018-10-05] MEDS ORDERED: proPOfol 200 MG/20 ML (DIPRIVAN) VIAL IV ONE (09:53)
[2018-10-05] MEDS ORDERED: ROCURONIUM 10 MG/ML 5 ML SYRINGE IV ONE (09:53)
[2018-10-05] MEDS ORDERED: ONDANSETRON 4 MG/2 ML (SDV) Z0FRAN ONE (09:53)
[2018-10-05] MEDS ORDERED: DEXAMETHASONE 10 MG/ML (DECADRON) 1 ML VIAL ONE (09:53)
[2018-10-05] MEDS ORDERED: BUP/EPI 0.5% 1:200,000 (SENSORCAINE) 30 ML VIAL ONE (09:55)
[2018-10-05] MEDS ORDERED: LACTATED RINGERS 1,000 ML IV PRN (10:02)
[2018-10-05] MEDS ORDERED: morphine INJ 10 MG/ML 1ML (SYR OR VIAL) IVP ONE (10:45)
[2018-10-05 11:00] VITALS: BP 115/67
[2018-10-05 11:30] VITALS: BP 114/83
--- NOTE | 2018-10-05 12:40 | Progress Note-Post Operative ---
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 Procedure & Operative Findings Date of Procedure 10/05/18 Procedure Performed/Findings excision subfascial buttock lesion (2cm) Anesthesia Type MAC with local Estimated Blood Loss Estimated blood loss (mL): minimal Specimens/Packing Specimens Removed left buttock lesion KAROLINA CARTER MD Oct 05, 2018 12:40
--- NOTE | 2018-10-05 13:05 | Anesthesia-General Post-Op ---
General Patient Condition Mental Status/LOC: Same as Preop Cardiovascular: Satisfactory Nausea/Vomiting: Absent Respiratory: Satisfactory Pain: Controlled Complications: Absent Post Op Complications Complications None Follow Up Care/Instructions Patient Instructions None needed. Anesthesia/Patient Condition Patient Condition Patient is doing well, no complaints, stable vital signs, no apparent adverse anesthesia problems. No complications reported per nursing. CIELO NAVARRO CRNA Oct 05, 2018 13:05
--- NOTE | 2018-10-05 14:56 | OPERATIVE REPORT ---
DATE OF SERVICE: 10/05/2018 PREOPERATIVE DIAGNOSIS: Recurrent symptomatic lesion of the left buttock from previous lipomas and scar tissue from frequent falls. POSTPROCEDURE DIAGNOSES: Recurrent symptomatic lesion of the left buttock from previous lipomas and scar tissue from frequent falls with the lesion deep to the fascia and approximately 2 cm in size. SURGEON: Karolina Carter MD AUTO MOTOR MECHANIC: Pierre Luu APRN. ANESTHESIA: Monitored anesthesia care with local. ESTIMATED BLOOD LOSS: Minimal. FINDINGS: Scar tissue with surrounding adipose tissue consistent with a lipoma, tender to palpation. This was overlying the ischial tuberosity. DISPOSITION: The patient tolerated the procedure well. The patient is a 68-year-old female known to us. She has had a longstanding history of seizure disorder and multiple falls. Due to these falls, she has had a multitude of fractures as well. The majority of time she does fall on her left side and has had multiple contusions of the left buttock overlying the ischial tuberosity. She also did have a total hip replacement on that side. We have seen her multiple times for removal of symptomatic lesions in the operating room, which have been found to be lipomas as well as surrounding scar tissue. The last time we did this was in 2010. She returns with another recent fall six months ago and symptomatic scar tissue, which is painful to palpation, approximately 2 cm in size overlying the ischial tuberosity on the left side. The patient was brought to the operating room, laid in the left lateral decubitus position. After adequate IV pain and sedating medications and monitored anesthesia care, the buttock and perineum were prepped and draped in standard surgical fashion. A 0.5% Marcaine with epinephrine was then used to anesthetize the overlying skin to the lesion overlying the left ischial tuberosity. A transverse skin incision was made using 15 blade. The subcutaneous tissue was then opened using electrocautery as was the overlying fascia to the gluteus muscle. The lesion was what appeared to be a combination of scar tissue as well as a lipoma approximately 2 cm in size, which was fully excised using electrocautery with visualization of good hemostasis. The subcutaneous tissue was then reapproximated using 3-0 Vicryl interrupted suture and skin was closed using 4-0 Monocryl running subcuticular suture. Wound was then cleaned and covered with Dermabond. The patient tolerated the procedure well. We will start IV normal pain medication as well as a clear liquid diet. When she is tolerating clears, has good pain control with oral pain medications, ambulating well, we will discharge her home and she will be instructed to offload wait for at least 2 weeks on the buttock and perineal region. Job ID: [id number] DocumentID: [id number] Dictated Date: 10/05/2018 10:29:18 Getter Welder Date: 10/05/2018 14:55:19 Dictated By: KAROLINA CARTER MD MTDD
== END 2018-10-05 12:30 | disposition home or self-care (01) ==
LOC: SDC 09:15
PROVIDERS: ATTEND Surgery
DX: D17.1 Benign lipomatous neoplasm of skin and subcutaneous tissue of trunk (principal); L90.5 Scar conditions and fibrosis of skin; G40.909 Epilepsy, unspecified, not intractable, without status epilepticus; Z79.899 Other long term (current) drug therapy
CPT/HCPCS: 87081; 88304

== ENCOUNTER → 2018-10-07 | Outpatient (CLI) | payer MEDICARE ==
[~2018-10-07] MED LIST changes: +HYDR-3820 PO
--- NOTE | 2018-10-07 18:35 | Diagnostic Imaging Report ---
INDICATION: Fall with left ankle pain. TECHNIQUE: AP, oblique, and lateral views of the left ankle are obtained. FINDINGS: No fracture or acute bony abnormality is seen. There is mild joint space narrowing of the left ankle. IMPRESSION: No acute abnormality of the left ankle. Dictated by: Dictated on workstation # [id number]
--- NOTE | 2018-10-07 20:43 | Diagnostic Imaging Report ---
EXAMINATION: Left knee radiographs, 3 views. COMPARISON: None. HISTORY: 68-year-old female, left knee pain. FINDINGS: There is no acute fracture. There is no knee joint effusion. The lateral view is somewhat obliquely positioned. There is no pronounced joint space loss. There is no osteophyte formation. There are vascular calcifications noted. IMPRESSION: Unremarkable radiographs of the left knee. Dictated by: Dictated on workstation # [id number]
== END ==
LOC: RAD 15:34
PROVIDERS: ATTEND Internal Medicine
DX: M99.03 Segmental and somatic dysfunction of lumbar region (principal); M99.04 Segmental and somatic dysfunction of sacral region; M25.562 Pain in left knee; M25.572 Pain in left ankle and joints of left foot; W19.XXXA Unspecified fall, initial encounter
CPT/HCPCS: 73562; 73610

== ENCOUNTER → 2018-12-02 | Outpatient (CLI) | payer MEDICARE ==
--- NOTE | 2018-12-02 19:56 | Diagnostic Imaging Report ---
EXAM: MRI left tibia and fibula without contrast. DATE: December 02, 2018. INDICATION: 68-year-old female, tripped and fell in April 2018. Consistent left lower leg pain. COMPARISON: Radiographs of the left ankle and knee from October 07, 2018. TECHNIQUE: Multiple noncontrast MRI sequences at the level of the left tibia and fibula without contrast were obtained. Some of the sequences do include the right tibia and fibula within the [id number]. FINDINGS: There is an area of benign focal fat in the left medial head of gastrocnemius muscle likely relating to partial fatty atrophy of the muscle at this location. There is very low-level edema in the right and left tibialis posterior muscles and left gluteus medius muscle. This potentially could reflect denervation related signal changes. There is fatty atrophy of both tibialis posterior muscles. The additional intramuscular signal is unremarkable. Additional soft tissue assessment is unremarkable. The visualized tendons are grossly intact. The bone marrow signal is unremarkable. Specifically, there is no acute fracture, bone contusion or evidence of stress reaction. IMPRESSION: 1. Partial fatty atrophy of the left medial gastrocnemius muscle as well as the bilateral tibialis posterior muscles with low-level edema in these muscles most likely reflecting denervation related signal changes. 2. No additional abnormal intramuscular signal. 3. Intact visualized tendons. 4. No acute fracture, bone contusion or evidence of stress reaction. Dictated on workstation # [id number]
== END ==
LOC: RAD 10:03
PROVIDERS: ATTEND Internal Medicine
DX: M62.562 Muscle wasting and atrophy, not elsewhere classified, left lower leg (principal); M62.561 Muscle wasting and atrophy, not elsewhere classified, right lower leg

== ENCOUNTER 2019-01-17 05:37 | Outpatient (CLI) | payer MEDICARE ==
[~2019-01-17] VITALS: Ht 165.1 cm; Wt 63.9 kg
== END 2019-01-17 11:40 | disposition home or self-care (01) ==
LOC: PREOP 05:37
PROVIDERS: ATTEND Surgery
DX: Z01.818 Encounter for other preprocedural examination (principal)

== ENCOUNTER 2019-01-21 13:29 | Day surgery (SDC) | payer MEDICARE ==
[~2019-01-21] VITALS: Ht 165.1 cm; Wt 63.9 kg
[2019-01-21] MEDS ORDERED: NS IV 500 ML 500 ML ONE (13:31)
[2019-01-21 13:35] VITALS: BP 100/59
[2019-01-21] MEDS ORDERED: NS IV 500 ML 500 ML IV PRN ×2 (13:36→13:42)
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
[2019-01-21] MEDS ORDERED: fentaNYL INJECTION 100 MCG/2 ML AMP IVP ONE ×2 (13:45)
[2019-01-21] MEDS ORDERED: MIDAZOLAM 2 MG/2 ML (VERSED) VIAL IVP ONE ×2 (13:45)
[2019-01-21] MEDS ORDERED: LIDOCAINE JELLY 2% 6 ML SYRINGE MM PRN ×2 (13:45)
[2019-01-21 13:54] VITALS: BP 101/61
[2019-01-21] MEDS ORDERED: LIDOCAINE JELLY 2% 6 ML SYRINGE ONE (14:37)
[2019-01-21] MEDS ORDERED: fentaNYL INJECTION 100 MCG/2 ML AMP ONE (14:37)
[2019-01-21] MEDS ORDERED: MIDAZOLAM 2 MG/2 ML (VERSED) VIAL ONE ×3 (14:38)
--- NOTE | 2019-01-21 14:40 | Conscious Sedation/ASA ---
Conscious Sedation Pre-Proced Time 14:00 ASA Score 2 For ASA 3 and 4: Consider anesthesia and medical clearance. Also, for patients with a history of failed moderate sedation consider anesthesia. Airway Lungs Heart ASA score ASA 1: a normal healthy patient ASA 2: a patient with a mild systemic disease (mid diabetes, controlled hypertension, obesity ASA 3: a patient with a severe systemic disease that limits activity (angina, COPD, prior Myocardial infarction) ASA 4: a patient with an incapacitating disease that is a constant threat to life (CHF, renal failure) ASA 5: a moribund patient not expected to survive 24 hrs. (ruptured aneurysm) ASA 6: a declared brain- patient whose organs are being harvested. For emergent operations, add the letter E after the classification Mallampati Classification Grade 2 Sedation Plan Analgesia, Amnesia, Plan communicated to team members, Discussed options with patient/fam, Discussed risks with patient/fam The patient is an appropriate candidate to undergo the planned procedure, sedation, and anesthesia. The patient immediately re-assessed prior to indication. KAROLINA CARTER MD Jan 21, 2019 14:40
--- NOTE | 2019-01-21 14:41 | Progress Note-Pre Operative ---
Pre-Operative Progress Note H&P Reviewed The H&P was reviewed, patient examined and no changes noted. Date Seen by Provider: Jan 21, 2019 Time Seen by Provider: 14:00 Date H&P Reviewed: Jan 21, 2019 Time H&P Reviewed: 14:00 Pre-Operative Diagnosis: screening colonoscopy KAROLINA CARTER MD Jan 21, 2019 14:41
--- NOTE | 2019-01-21 14:43 | Discharge Inst-Surgical ---
D/C Lap Instructions-EMMA Follow Up Activity as tolerated High Fiber Diet 25g or more per day Avoid Alcohol, Caffeine, Spicy [place] and Acid foods. Drink 64 fluid oz or more of fluids per day. Symptoms to Report: Fever over 101 degree F, Nausea/Vomiting If any problems/questions: Contact your physician or go to Emergency Room KAROLINA CARTER MD Jan 21, 2019 14:43
[2019-01-21] MEDS ORDERED: HYDROcodone/APAP 5 MG/325 MG (LORTAB) TAB PO PRN (14:45)
[2019-01-21] MEDS ORDERED: ONDANSETRON 4 MG/2 ML (SDV) Z0FRAN IVP PRN (14:45)
[2019-01-21] MEDS ORDERED: ACETAMINOPHEN 325 MG TABLET PO PRN (14:45)
[2019-01-21] MEDS ORDERED: morphine INJ 10 MG/ML 1ML (SYR OR VIAL) IVP PRN ×2 (14:45)
--- NOTE | 2019-01-21 15:50 | Progress Note-Post Operative ---
Post-Operative Progess Note Surgeon (s)/Processor Grain (s) Surgeon KAROLINA CARTER MD Processor Grain: none Pre-Operative Diagnosis screening colonoscopy Post-Operative Diagnosis acute on chronic stage 2-3 ext and int hemorrhoids Procedure & Operative Findings Date of Procedure 01/21/19 Procedure Performed/Findings colonoscopy Anesthesia Type cs Estimated Blood Loss Estimated blood loss (mL): minimal Specimens/Packing Specimens Removed none KAROLINA CARTER MD Jan 21, 2019 15:50
[2019-01-21 16:05] VITALS: BP 111/75
[2019-01-21 16:30] VITALS: BP 111/75
--- NOTE | 2019-02-01 20:39 | OPERATIVE REPORT ---
DATE OF SERVICE: 01/21/2019 ATTENDING PRIMARY CARE PHYSICIAN: Dr. Tucker. PREOPERATIVE DIAGNOSIS: Screening colonoscopy. POSTOPERATIVE DIAGNOSIS: Mild chronic stage II external and internal hemorrhoids. Remainder of the rectum and colon were normal. PROCEDURE: Colonoscopy. SURGEON: Karolina Carter MD ANESTHESIA: Conscious sedation. ESTIMATED BLOOD LOSS: Minimal. FINDINGS: Same as postop diagnosis. DISPOSITION: The patient tolerated the procedure well. INDICATIONS: The patient is a 69-year-old female known to us. She has a history of seizure disorder and has had multiple falls and has developed fractures of the hips encompassing a right hip replacement in 2007 as well as a left hip replacement in 2000 and a revision on the right hip in 2009. 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 She has not had a colonoscopy up to this point in her life. She is unsure of family history due to being adopted. She does not report any major issues with diarrhea, no constipation as well as no red blood per rectum nor any dark tarry stools. DESCRIPTION OF PROCEDURE: The patient was brought to the endoscopy suite, laid in the left lateral decubitus position. After adequate IV pain and sedative medications and conscious sedation anesthesia, a digital rectal examination was performed. Mild chronic stage II external and internal hemorrhoids were identified, which were not actively edematous nor inflamed and no bleeding. Normal sphincter tone was felt and there were no palpable masses. The endoscope was then intubated to the anus and rectum gently insufflated. The endoscope was then advanced to the [facility] in the rectum with no polyps or any neoplasms identified. The endoscope was then advanced to the sigmoid colon where no diverticulosis identified. The endoscope was then advanced to the remainder of the descending, transverse and ascending colon to the cecum. These segments were normal as well with no polyps nor any neoplasms identified throughout the colon or rectum. The endoscope was then slowly withdrawn while taking a second look and suctioning of residual air with no additional findings. The patient tolerated the procedure well. We will recommend conservative management with a high fiber diet with at least 25 grams of fiber per day as well as significant amounts of water daily to promote soft stools on a daily basis. She does not need another colonoscopy for another 10 years. 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
== END 2019-01-21 16:30 | disposition home or self-care (01) ==
LOC: ENDO 13:29
PROVIDERS: ATTEND Surgery
DX: Z12.11 Encounter for screening for malignant neoplasm of colon (principal); K64.1 Second degree hemorrhoids; G40.909 Epilepsy, unspecified, not intractable, without status epilepticus; Z79.899 Other long term (current) drug therapy

== ENCOUNTER → 2019-03-23 | Outpatient (CLI) | payer MEDICARE ==
[~2019-03-23] MED LIST changes: -OMEP20CA12 PO; +OMEP20CA13 PO
[2019-03-23 14:40] LABS: BASOPHILS # (AUTO) 0.1 10^3/uL (0.0-0.1); BASOPHILS % (AUTO) 1 % (0-10); EOSINOPHILS # (AUTO) 0.1 10^3/uL (0.0-0.3); EOSINOPHILS % (AUTO) 2 % (0-10); HEMATOCRIT 38 % (35-52); HEMOGLOBIN 12.8 G/DL (11.5-16.0); LYMPHOCYTES # (AUTO) 1.1 X 10^3 (1.0-4.0); LYMPHOCYTES % (AUTO) 19 % (12-44); MEAN CORPUSCULAR HEMOGLOBIN 31 PG (25-34); MEAN CORPUSCULAR HGB CONC 34 G/DL (32-36); MEAN CORPUSCULAR VOLUME 93 FL (80-99); MEAN PLATELET VOLUME 8.8 FL (7.4-10.4); MONOCYTES # (AUTO) 0.7 X 10^3 (0.0-1.0); MONOCYTES % (AUTO) 13 % (0-12); NEUTROPHILS # (AUTO) 3.9 X 10^3 (1.8-7.8); NEUTROPHILS % (AUTO) 66 % (42-75); PLATELET COUNT 285 10^3/uL (130-400); RED CELL DISTRIBUTION WIDTH 12.7 % (10.0-14.5); WHITE BLOOD COUNT 5.9 10^3/uL (4.3-11.0)
[2019-03-23 15:02] LABS: ALANINE AMINOTRANSFERASE 13 U/L (0-55); ALBUMIN 4.3 GM/DL (3.2-4.5); ALKALINE PHOSPHATASE 107 U/L (40-136); BILIRUBIN,TOTAL 0.3 MG/DL (0.1-1.0); BUN/CREATININE RATIO 13; CALCIUM 8.9 MG/DL (8.5-10.1); CARBON DIOXIDE 27 MMOL/L (21-32); CHLORIDE 97 MMOL/L (98-107); CREATININE SERUM 0.83 MG/DL (0.60-1.30); GFR ESTIMATED > 60; GLUCOSE 109 MG/DL (70-105); POTASSIUM 4.1 MMOL/L (3.6-5.0); SODIUM 131 MMOL/L (135-145); TOTAL PROTEIN 7.2 GM/DL (6.4-8.2)
== END ==
LOC: RAD 14:17
PROVIDERS: ATTEND Psychiatry & Neurology Neurology
DX: R56.9 Unspecified convulsions (principal)
CPT/HCPCS: 36415; 80053; 80175; 85025

== ENCOUNTER → 2020-11-26 | Outpatient (CLI) | payer MEDICARE ==
[~2020-11-26] MED LIST changes: +ACHYD1T PO; -HYDR-3820 PO; -LAMO100T PO; +LAMO100T5 PO; -OMEP20CA13 PO; +OMEP20CA18 PO
--- NOTE | 2020-11-26 18:32 | Diagnostic Imaging Report ---
INDICATION: Routine screening. COMPARISON is made with prior mammogram from 03/27/2011. 2-D and 3-D bilateral screening mammography was performed with CAD. Scattered fibroglandular densities are identified bilaterally. There are benign calcifications in both breasts. Overall parenchymal pattern is stable. No mass or malignant appearing microcalcifications are seen. Axillae are unremarkable. IMPRESSION: BI-RADS Category 2 No mammographic features suspicious for malignancy are identified. ACR BI-RADS Category 2: Benign findings. Result letter will be mailed to the patient. Note: At least 10% of breast cancer is not imaged by mammography. Dictated by: Dictated on workstation # [id number]
== END ==
LOC: RAD 13:53
PROVIDERS: ATTEND Internal Medicine
DX: Z12.31 Encounter for screening mammogram for malignant neoplasm of breast (principal)
CPT/HCPCS: 77063; 77067

== ENCOUNTER → 2022-09-30 | Outpatient (CLI) | payer MEDICARE ==
[~2022-09-30] MED LIST changes: -GLUC1CAP35 PO; +GLUC1CAP36 PO
--- NOTE | 2022-09-30 13:20 | Diagnostic Imaging Report ---
INDICATION: Postmenopausal state COMPARISON: 11/03/2013 FINDINGS: AP Spine L1-L4: [BMD (g/cm2): 1.114] [T-Score: -0.7] [Z-Score: 1.1] [BMD Previous: 0.974] [BMD % Change: 14.4]* The bilateral hips were not evaluated secondary to postsurgical changes. Radius 33%: [BMD (g/cm2):0.571] [T-score:Negative 3.6] [Z-Score:Negative 1.7] [BMD Previous:NA] [BMD % Change:NA] *Indicates significant change from prior examination based on 95% confidence level. World Health Organization criteria for BMD interpretation classify patients as Normal (T-score at or above -1.0), Osteopenic (T-score between -1.0 and -2.5) or Osteoporotic (T-score at or below -2.5). LIMITATIONS AND MODIFICATION: The bilateral hips were not evaluated secondary to postsurgical changes. IMPRESSION: 1. Osteoporosis. 2. Bone mineral density within the lumbar spine has significantly increased since the prior examination, though much of this apparent increase is likely artifactual secondary to degenerative hypertrophic changes. 3. See below National Osteoporosis Foundation guidelines on when to potentially initiate pharmacologic therapy. Based on the National Osteoporosis Foundation Guidelines, pharmacologic treatment should be initiated in any of the following, unless clinical conditions suggest otherwise: * Any patient with prior fragility fracture of the hip or vertebrae. A spine fracture indicates 5X risk for subsequent spine fracture and 2X risk for subsequent hip fracture. * Osteoporosis (T-score <-2.5). * Postmenopausal women and men age 50 and older with low bone mass/osteopenia (T-score between -1.0 and -2.5) by DXA and 10-year major osteoporotic fracture greater than 20% or a 10-year probability of hip fracture greater than 3%. These fracture risks are supplied above in the FRAX score, if applicable. * Clinician judgement and/or patient preferences may indicate treatment for people with 10-year fracture probabilities above or below these levels. Dictated by: Dictated on workstation # [id number]
--- NOTE | 2022-09-30 16:31 | Diagnostic Imaging Report ---
3D bilateral screening mammogram. The current study was also evaluated with a Computer Aided Detection (CAD) system. COMPARISON: This study was compared to the prior exams of 11/26/2020. There are no current complaints. FINDINGS: The fibroglandular tissue in both breasts is heterogeneously dense. This does limit the sensitivity of this exam. Overall, there does not appear to have been any significant change when compared to the prior study. No primary or secondary sign of malignancy is noted. IMPRESSION: 1. There is no radiographic evidence for malignancy. 2. The patient should have her annual bilateral screening mammogram on schedule in September of 2023. BI-RADS CATEGORY: 1. NEGATIVE. ACR BI-RADS Category 1: Negative. Result letter will be mailed to the patient. Note: At least 10% of breast cancer is not imaged by mammography. Dictated by: Dictated on workstation # [id number]
== END ==
LOC: RAD 10:28
PROVIDERS: ATTEND Internal Medicine
DX: Z12.39 Encounter for other screening for malignant neoplasm of breast (principal); M81.0 Age-related osteoporosis without current pathological fracture; M85.9 Disorder of bone density and structure, unspecified
CPT/HCPCS: 77063; 77067; 77080